=== PATIENT | male | born 1935 | race Caucasian/White ===

== ENCOUNTER 2020-05-09 16:58 | Emergency (ER) | payer OTHER ==
[2020-05-09 18:34] LABS: #Eosinphils 0.2 thou/uL (0.0-0.7); #Lymphocytes 0.6 thou/uL (1.20-3.40); #Neutrophils 6.4 thou/uL (1.40-6.50); %Basophils 0.3 % (0.0-1.0); %Eosinophils 2.4 % (0.0-10.0); %Lymphocytes 7.7 % (21.0-51.0); %Monocytes 12.3 % (0.0-10.0); %Neutrophils 77.3 % (42.0-75.0); Hemoglobin 10.9 g/dL (14.0-18.0); Mean Corpuscular HGB CONC 31.2 g/dL (32.0-36.0); Mean Corpuscular Hemoglobin 26.9 pg (27.0-31.0); Mean Corpuscular Volume 86.3 fL (78.0-98.0); Mean Platelet Volume 7.1 fL (7.4-10.4); Platelet Count 282 thou/uL (130-400); RBC Distribution Width 14.8 % (11.5-14.5); Red Blood Cell (RBC) Count 4.06 mill/uL (4.70-6.10); White Blood Cell (WBC) Count 8.3 thou/uL (4.8-10.8)
[2020-05-09] MEDS ORDERED: Lidocaine 1% (PF) 30 ML VIAL ONE (18:38)
[2020-05-09 18:41] LABS: INR-International Normal Ratio 2.2; PTT 40.2 sec (22.9-36.1); Prothrombin Time 25.2 sec (12.0-14.7)
[2020-05-09] MEDS ORDERED: Boostrix 0.5 ML (Tdap) VIAL ONE (19:59)
== END 2020-05-09 20:15 | disposition home or self-care (01) ==
LOC: ERS 16:58
DX: S81.812A Laceration without foreign body, left lower leg, initial encounter (principal); I48.91 Unspecified atrial fibrillation; I11.0 Hypertensive heart disease with heart failure; I50.9 Heart failure, unspecified; Z87.891 Personal history of nicotine dependence; Z79.01 Long term (current) use of anticoagulants; Z23 Encounter for immunization; W22.8XXA Striking against or struck by other objects, initial encounter
CPT/HCPCS: 12005; 36415; 85025; 85610; 85730; 90471; 90715; J2001